=== PATIENT | male | born 2000 | race Caucasian/White ===

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

== ENCOUNTER 2021-05-29 21:38 | Emergency (ER) | payer BC, OTHER ==
[2021-05-29] MEDS ORDERED: Azithromycin 250 MG Tab PO ONE (21:39)
[2021-05-29] MEDS ORDERED: Codeine/guaiFENesin 100mg-10 MG/5 ML Soln 118 ML Bottle PO ONE (21:39)
--- NOTE | 2021-05-29 22:06 | EDM.PDOC ---
ED HPI GENERAL MEDICAL PROBLEM - General Chief Complaint: Fever Stated Complaint: COUGHING BLOOD Time Seen by Provider: 05/29/21 22:03 Source of Information: Reports: Patient History Limitations: Reports: No Limitations - History of Present Illness INITIAL COMMENTS - FREE TEXT/NARRATIVE: Vinicius is a 20 yo male with complaints of a cough,headache and fever since this morning. He endorses blood streaked sputum,a mild sore throat. Cough is paroxysmal,and had a syncopal event after a coughing fit. Of note,he had COVID 19 about 4 months ago - Related Data Allergies Allergy/AdvReac Type Severity Reaction Status Date / Time No Known Allergies Allergy Verified 02/17/20 19:51 Home Meds: Home Meds NK [No Known Home Meds] 02/17/20 [History] Past Medical History Respiratory History: Reports: Pneumonia, Recurrent Psychiatric History: Reports: None - Infectious Disease History Infectious Disease History: Reports: Novel Coronavirus - Past Surgical History Musculoskeletal Surgical History: Reports: Shoulder Surgery, Other (See Below) Other Musculoskeletal Surgeries/Procedures:: Left shoulder surgery. Social & Family History - Family History Family Medical History: No Pertinent Family History - Tobacco Use Tobacco Use Status *Q: Never Tobacco User - Caffeine Use Caffeine Use: Reports: None ED ROS GENERAL - Review of Systems Review Of Systems: Comprehensive ROS is negative, except as noted in HPI. ED EXAM, GENERAL - Physical Exam Exam: See Below Exam Limited By: No Limitations General Appearance: Alert, WD/WN, No Apparent Distress Ears: Normal External Exam, Normal Canal, Hearing Grossly Normal, Normal TMs Nose: Nasal Drainage Throat/Mouth: Normal Inspection Head: Atraumatic Neck: Normal Inspection Respiratory/Chest: No Accessory Muscle Use Cardiovascular: Normal Peripheral Pulses GI/Abdominal: Soft Neurological: Alert, Oriented, CN II-XII Intact Psychiatric: Normal Affect Course - Vital Signs Last Recorded V/S: Last Vital Signs Temp 100.4 F 05/29/21 21:45 Pulse 73 05/29/21 21:45 Resp 16 05/29/21 21:45 BP 152/77 H 05/29/21 21:45 Pulse Ox 97 05/29/21 21:45 Departure - Departure Time of Disposition: 22:05 Disposition: Home, Self-Care 01 Condition: Good Clinical Impression: Acute bronchitis - Discharge Information Sepsis Event Note (ED) - Evaluation Sepsis Screening Result: No Definite Risk - Focused Exam Vital Signs: Vital Signs Temp Pulse Resp BP Pulse Ox 05/29/21 21:45 100.4 F 73 16 152/77 H 97 - Problem List & Annotations (1) Acute bronchitis SNOMED Code(s): 41400479 Code(s): J20.9 - ACUTE BRONCHITIS, UNSPECIFIED Status: Acute Qualifiers: Bronchitis organism: unspecified organism Qualified Code(s): J20.9 - Acute bronchitis, unspecified - Problem List Review Problem List Initiated/Reviewed/Updated: Yes - Assessment/Plan Plan: Lisa ÁLVAREZ and
== END 2021-05-29 22:13 | disposition home or self-care (01) ==
LOC: FB.ED 21:38
DX: J20.9 Acute bronchitis, unspecified (principal); Z86.16 Personal history of COVID-19
CPT/HCPCS: 99283; A9270-GY

== ENCOUNTER 2021-08-16 09:46 | Day surgery (SDC) | payer OTHER, BC ==
[~2021-08-16 09:46] MED LIST: Lactated Ringers 1,000 ML IV SCH; Sodium Chloride 0.9% 10 ML Syringe FLUSH PRN
[2021-08-16] MEDS ORDERED: Midazolam 1 MG/ML 2 ML SDV IV ONE (09:47)
[2021-08-16] MEDS ORDERED: Lidocaine 2% 100 MG/5 ML Syringe IVPUSH ONE (09:47)
[2021-08-16] MEDS ORDERED: Propofol 200 MG/20 ML SDV IV ONE (09:47)
== END 2021-08-16 11:50 | disposition home or self-care (01) ==
LOC: FB.SDS 09:46
PROVIDERS: ATTEND Surgery
DX: R13.10 Dysphagia, unspecified (principal); R63.4 Abnormal weight loss; Z79.899 Other long term (current) drug therapy
CPT/HCPCS: 43235; J2250; J2704; J7120; 00731-QZ